=== PATIENT | male | born 1960 | race Caucasian/White ===

== ENCOUNTER 2017-02-04 12:16 | Day surgery (SDC) | payer BC ==
[~2017-02-04] VITALS: Ht 167.6 cm; Wt 73.4 kg
[2017-02-04 12:43] VITALS: Ht 167.6 cm; Wt 73.4 kg
[2017-02-04 13:18] VITALS: BP 124/78; PULSE 69; RESP 16
--- NOTE | 2017-02-04 13:57 | OPPN ---
Date/Time of Note Date/Time of Note DATE: 02/04/17 TIME: 13:54 Operative Report Preoperative Diagnosis Screening Postoperative Diagnosis Colon polyps Internal hemorrhoids Operation/Procedure Performed Colonoscopy biopsy and polypectomy Surgeon see signature line surgeon's assistant None Anesthesia: moderate sedation Estimated blood loss: none Transfusion Required none Specimen Colon polyps Prominent sigmoid fold biopsy Grafts/Implants none Complications none GLADIS STALLWORTH MD Feb 04, 2017 13:57
[2017-02-04] MEDS ORDERED: FENTAnyl 50 MCG/ML VIAL ONE (14:01)
[2017-02-04] MEDS ORDERED: MIDAZOLAM 1 MG/ML 2 ML INJ ONE ×3 (14:01)
[2017-02-04 14:15] VITALS: BP 112/76; RESP 14
--- NOTE | 2017-02-04 17:49 | GILP ---
DATE OF PROCEDURE: 02/04/2017 PROCEDURE PERFORMED: 1. Colonoscopy. 2. Biopsy. 3. Polypectomy. SURGEON: Nancy Davis MD. PREOPERATIVE DIAGNOSIS: Screening colonoscopy. POSTOPERATIVE DIAGNOSES: 1. Colonoscopy all the way to the cecum. 2. Sigmoid colon polyp was removed using the snare and electrocautery. 3. Transverse colon polyp was removed using biopsy forceps. 4. Prominent fold in the sigmoid, and biopsies were taken for histopathology. 5. Internal hemorrhoids. INDICATION: Mr. Doug Palomo is a 56-year-old male patient, who was scheduled for screening colonoscopy. The procedure and possible complications were well explained to the patient. He understood and consented to the procedure. DESCRIPTION OF PROCEDURE: Under the influence of fentanyl and Versed, the colonoscope was carefully introduced into the rectum. Under direct vision, it was advanced all the way to the cecum. FINDINGS: Patient had a sigmoid colon polyp, and it was removed using the snare and electrocautery. He had a small transverse colon polyp, and it was removed using biopsy forceps. He was noted to have a prominent fold in the sigmoid colon, and biopsies were taken for histopathology. He had internal hemorrhoids. He tolerated the procedures very well. There was no complication from the procedures. At the end of the procedure, he was awake, with stable vital signs, and he was discharged home to the care of his family. IMPRESSION: 1. Colonoscopy all the way to the cecum. 2. Sigmoid colon polyp was removed using the snare and electrocautery. 3. Transverse colon polyp was removed using biopsy forceps. 4. Prominent fold in the sigmoid, and biopsies were taken for histopathology. 5. Internal hemorrhoids. PLAN: 1. Await histopathology reports. 2. Next screening colonoscopy in 5 years. Dictated By: MD ME Dillard/shahram/luis /Document#: [id number] CC: Nancy Davis MD;*[facility]*
== END 2017-02-04 16:13 | disposition home or self-care (01) ==
LOC: GIL 12:16
PROVIDERS: ATTEND Internal Medicine Gastroenterology
DX: Z12.11 Encounter for screening for malignant neoplasm of colon (principal); D12.5 Benign neoplasm of sigmoid colon; D12.3 Benign neoplasm of transverse colon
CPT/HCPCS: 45380; 45385; 88305; J2250; J3010